=== PATIENT | female | born 1975 | race Hispanic/Latino ===

== ENCOUNTER 2022-03-28 13:23 | Emergency (ER) | payer OTHER ==
--- OUTSIDE RECORDS SUMMARY | 2022-03-28 13:28 | XMS REPORT | Continuity of Care Document ---
:[address] [facility] t Address [address] [place] [address] Dr. Harris. [address] [place] [address] Care Team Providers Name Role Phone REESE Attending Clinician Unavailable Koudela_A Attending Clinician Unavailable AMBREEN_PAUL Attending Clinician Unavailable REESE Admitting Clinician Unavailable Koudela_A Admitting Clinician Unavailable AMBREEN_FARLEONARDOA Admitting Clinician Unavailable Payers Payer Name Policy Type Policy Number Effective Date Expiration Date S ource UMR [id number] 2019 00:00:00 UMR (PPO) [id number] 2019 00:00:00 [place] [id number] 2014 2019 00:00:00 [place] ([place] 00:00:00 Problems Condition Condition Condition Status Onset Resolution Last Treating Co mments Source Name Details Category Date Date Treatment Clinician Date Genital Genital Problem Active 2018-08 [place] warts Warts 1[facility]14 [facility] Chronic Chronic Problem Active 2018-08 [place] back pain Back Pain 1-14 [facility] Allergies, Adverse Reactions, Alerts This patient has no known allergies or adverse reactions. Social History Smoking Status Start Date Stop Date Source Heavy Tobacco Smoker [facility] Medications This patient has no known medications. Vital Signs Vital Name Observation Time Observation Value Comments Source BP Diastolic 2021-12-02 00:00:00 73 mm[Hg] [facility] Height 2021-12-02 00:00:00 61 [in_i] [facility] BMI (Body Mass 2021-12-02 00:00:00 35.1 kg/m2 [place] 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 BP Systolic 2021-12-02 00:00:00 128 mm[Hg] [facility] Body Weight 2021-12-02 00:00:00 186 [lb_av] [facility] BP Diastolic 2021-09-30 00:00:00 94 mm[Hg] [facility] Height 2021-09-30 00:00:00 61 [in_i] [facility] BMI (Body Mass 2021-09-30 00:00:00 35.1 kg/m2 [place] [employer]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 [facility] BP Systolic 2021-09-30 00:00:00 140 mm[Hg] [facility] Body Weight 2021-09-30 00:00:00 186 [lb_av] [facility] BP Diastolic 2021-03-28 00:00:00 74 mm[Hg] [facility] Height 2021-03-28 00:00:00 61 [in_i] [facility] BMI (Body Mass 2021-03-28 00:00:00 35.1 kg/m2 [place] [facility]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 [facility] Index) [facility] BP Systolic 2021-03-28 00:00:00 130 mm[Hg] [facility] Body Weight 2021-03-28 00:00:00 2969 [oz_av] [facility] BP Diastolic 2020-09-01 00:00:00 80 mm[Hg] [facility] Height 2020-09-01 00:00:00 61 [in_i] [place] BMI (Body Mass 2020-09-01 00:00:00 34.8 kg/m2 [place] [facility]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 [facility] BP Systolic 2020-09-01 00:00:00 130 mm[Hg] [place] [facility] Body Weight 2020-09-01 00:00:00 184 [lb_av] [facility] BP Diastolic 2020-08-09 00:00:00 80 mm[Hg] [facility] Height 2020-08-09 00:00:00 61 [in_i] [place] [facility] BMI (Body Mass 2020-08-09 00:00:00 35 kg/m2 [place] [facility]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 [facility] BP Systolic 2020-08-09 00:00:00 145 mm[Hg] [place] [facility] Body Weight 2020-08-09 00:00:00 185 [lb_av] [facility] BP Diastolic 2019-07-29 00:00:00 79 mm[Hg] [place] [facility] Height 2019-07-29 00:00:00 61 [in_i] [place] [facility] BMI (Body Mass 2019-07-29 00:00:00 36.1 kg/m2 [place] [facility]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 [facility] BP Systolic 2019-07-29 00:00:00 122 mm[Hg] [place] [facility] Body Weight 2019-07-29 00:00:00 191 [lb_av] [place] [facility] Height 2019-07-10 00:00:00 61 [in_i] [place] [facility] BMI (Body Mass 2019-07-10 00:00:00 37.2 kg/m2 [place] [facility]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 [facility] Body Weight 2019-07-10 00:00:00 197 [lb_av] [place] [facility] Procedures Procedure Date / Time Performed Performing Clinician [facility] clement MAMMO, screening, 2021-09-30 00:00:00 [facility] MAMMO, screening, 2020-08-09 00:00:00 [facility] MAMMO, screening, 2019-07-10 00:00:00 [facility] Tubal Ligation 2003-08-04 00:00:00 [facility] Plan of Care Planned Activity Planned Date Details Comments Source Diagnostic Test 2021-03-28 SARS CoV 2 RNA [facility] Pending 00:00:00 (COVID-19), QL, Group coroner/medical examiner-PCR, respiratory specimen [code = SARS CoV 2 RNA (COVID-19), QL, coroner/medical examiner-PCR, respiratory specimen] Encounters Start End Encounter Admission Attending Care Care Encounter Source Date/Time Date/Time Type Type Clinicians Facility Department ID 2021-12-05 2021-12-05 Outpatient [place]ONY [place] [id number] [place] 10:49:00 10:49:00 [facility] 2021-12-02 2021-12-02 Outpatient M[place]ONY [place] [id number] [place] 04:10:00 04:10:00 [facility] 0408 [facility] 2021-12-02 2021-12-02 Jolly BYERS [place] - [id number] M [facility] 00:00:00 00:00:00 Tari Hess, [facility] FIELD IRONWORKER: [address] [place] F N, MONITORING TECH [place] [address] Therese am , Ph. 2021-09-30 2021-09-30 Outpatient MELONY [place] [id number] [place] 04:03:00 04:03:00 [facility] 0204 [facility] 2021-09-30 2021-09-30 Outpatient LISTER_MELI [facility] [id number] [place] 04:03:00 04:03:00 [facility] 0407 [facility] 2021-09-30 2021-09-30 Jolly HIHOP [place] - [id number] M jael[place] 00:00:00 00:00:00 Tari Mandel da Starla, [facility] FIELD IRONWORKER: [address], MONITORING TECH [facility] [place] [address] Therese butcher , Ph. 2021-08-23 2021-08-23 Outpatient LISTER_MELI [facility] 732 [place] 02:02:00 02:02:00 SSA 1228 [facility] 2021-08-23 2021-08-23 Outpatient LISTER_MELI [facility] 732 [place] 02:02:00 02:02:00 SSA 0203 [facility] 2021-08-03 2021-08-03 Outpatient LISTER_MELI [facility] 732 [place] 10:02:00 10:02:00 SSA 1208 [facility] 2021-08-02 2021-08-02 Outpatient LISTER_MELI [facility] 732 [place] 11:43:00 11:43:00 S[facility] 1207 [facility] 2021-07-14 2021-07-14 Outpatient LISTER_MELI [facility] 732 [place] 10:57:00 10:57:00 S[facility] 1118 [facility] 2021-07-05 2021-07-05 Outpatient [facility]I [facility] 732 [place] 09:32:00 09:32:00 S[facility] 1109 [facility] 2021-05-06 2021-05-06 Outpatient Koudela_A [facility] [id number] [place] 12:50:00 12:50:00 0910 [facility] 2021-05-06 2021-05-06 Outpatient [facility] [id number] [place] 12:50:00 12:50:00 0928 [facility] 2021-03-28 2021-03-28 Outpatient Koudela_A [facility] [id number] [place] 12:46:00 12:46:00 0802 [facility] 2021-03-28 2021-03-28 [facility] [place] - [id number] M at[place]or 00:00:00 00:00:00 [facility] gillian Castorena PA-C: [facility] [place] [facility] [address] , Ph. 2020-09-24 2020-09-24 Outpatient STARLA_MEMEI [facility]OP [facility] 732 [place] 02:35:00 02:35:00 SSA 1102 [facility] 2020-09-02 2020-09-02 Outpatient LISTER_MEMEI [facility] 732 [place] 05:27:00 05:27:00 SSA 0107 [facility] 2020-09-01 2020-09-01 Outpatient STARLA_MEMEI [facility] 732 [place] 03:21:00 03:21:00 SSA 0106 [facility] 2020-09-01 2020-09-01 Jolly ZEESHAN [place] - [id number] [place] 00:00:00 00:00:00 Tari Hess, [facility] FIELD IRONWORKER: [address], MONITORING TECH [place] [address] [facility] , Ph. 2020-08-31 2020-08-31 Outpatient STARLA_MEMEI [facility]OP [facility] 732 [id number] [place] 09:42:00 09:42:00 SSA 0105 [facility] 2020-08-17 2020-08-17 Outpatient LISTER_MELI ME[facility]OP [facility] 732 75 [place] 03:39:00 03:39:00 SSA 1222 [facility] 2020-08-09 2020-08-09 Outpatient LISTER_MELI MEHOP [facility]OP 732 75 [place] 06:03:00 06:03:00 SSA 1214 [facility] 2020-08-09 2020-08-09 Jolly BYERS [place] - [id number] [place] 00:00:00 00:00:00 Tari Hess, [facility] FIELD IRONWORKER: 111 HOP - MEHOP dede Perez N, MONITORING TECH [place] [address] [facility] , Ph. 2020-08-02 2020-08-02 Outpatient AMBREEN_FAR [facility] 732 75 [place] 03:04:00 03:04:00 HANA 1207 [facility] 2020-08-02 2020-08-02 Outpatient AMBREEN_FAR [facility] 732 [place] 03:04:00 03:04:00 HANA 1210 [facility] 2020-04-13 2020-04-13 Outpatient AMBREEN_FAR [facility] 732 75 [place] 10:26:00 10:26:00 HANA 1009 [facility] 2020-04-12 2020-04-12 Outpatient AMBREEN_FAR [facility] 732 75 [place] 09:06:00 09:06:00 HANA 0817 [facility] 2020-04-05 2020-04-05 Outpatient AMBREEN_FAR [facility] 732 75 [place] 10:11:00 10:11:00 HANA 0810 [facility] 2019-07-29 2019-07-29 Jolly BYERS [place] - [id number] [place] 00:00:00 00:00:00 Tari Hess, [facility] FIELD IRONWORKER: [address], MONIT[place]ING [place] [facility] [place] [address] Progr am , Ph. 2019-07-10 2019-07-10 Jolly BYERS [place] - [id number] M [place] 00:00:00 00:00:00 Tari Hess, [facility] FIELD IRONWORKER: [address] [facility] [address], [facility] [place] [address] Progr am , Ph. Results Test Description Test Time Test Comments Results Result Comments Source cardiovascular assessment panel, serum 2020-08-10 00:00:00 Test Item Value Reference Range Interpretation Comme nts interpretation (test code = interpretation) note pdf (test code = pdf) . 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 in Unspecified specimen by Other stain (test code = 94220-2) note: (test code = note:) comment Cytology report of Cervical or comment vaginal smear or scraping Cyto stain.thin prep (test code = 36677-2) Human papilloma virus negative negative 16+18+31+33+35+39+45+51+52+56+58+59+ 66+68 DNA [Presence] in Cervix by Probe with signal amplification (test code = 68282-5) Chlamydia trachomatis rRNA negative negative [Presence] in Cervix by AMELIA with probe detection (test code = 20831-0) Neisseria gonorrhoeae rRNA negative negative [Presence] in Cervix by AMELIA with probe detection (test code = 43390-6) Trichomonas vaginalis rRNA negative negative [Presence] in Unspecified specimen by AMELIA with probe detection (test code = 05985-5) [facility] - Serum or [id number] 00:00:00 Test Item Value Reference Range Interpretation Comments Thyrotropin [Units/volume] in 1.760 uIU/mL 0.450-4.500 Serum or Plasma by Detection limit <= 0.005 mIU/L (test code = 91383-5) Thyroxine (T4) free 0.80 NG/dL 0.82-1.77 L [Mass/volume] in Serum or Plasma (test code = 3024-7) [facility] Differential panel - Blood 2020-08-10 00:00:00 Test Item Value Reference Range Interpretation Comments Leukocytes [#/volume] in Blood 13.2 x10e3/uL 3.4-10.8 H by Automated count (test code = 6690-2) Erythrocytes [#/volume] in 4.79 x10e6/uL 3.77-5.28 Blood by Automated count (test code = 789-8) Hemoglobin [Mass/volume] in 15.3 g/dL 11.1-15.9 Blood (test code = 718-7) Hematocrit [Volume Fraction] of 46.4 % 34.0-46.6 Blood by Automated count (test code = 4544-3) MCV [Entitic volume] by 97 fL 79-97 Automated count (test code = 787-2) MCH [Entitic mass] by Automated 31.9 pg 26.6-33.0 count (test code = 785-6) MCHC [Mass/volume] by Automated 33.0 g/dL 31.5-35.7 count (test code = 786-4) Erythrocyte distribution width 12.5 % 11.7-15.4 [Ratio] by Automated count (test code = 788-0) Platelets [#/volume] in Blood 252 x10e3/uL 150-450 by Automated count (test code = 777-3) Neutrophils/100 leukocytes in 64 % not estab. Blood by Automated count (test code = 770-8) Lymphocytes/100 leukocytes in 27 % not estab. Blood by Automated count (test code = 736-9) Monocytes/100 leukocytes in 3 % not estab. Blood by Automated count (test code = 5905-5) Eosinophils/100 leukocytes in 4 % not estab. Blood by Automated count (test code = 713-8) Basophils/100 leukocytes in 1 % not estab. Blood by Automated count (test code = 706-2) immature cells (test code = medicare contact specialist immature cells) Neutrophils [#/volume] in Blood 8.6 x10e3/uL 1.4-7.0 H by Automated count (test code = 751-8) Lymphocytes [#/volume] in Blood 3.5 x10e3/uL 0.7-3.1 H by Automated count (test code = 731-0) Monocytes [#/volume] in Blood 0.4 x10e3/uL 0.1-0.9 by Automated count (test code = 742-7) Eosinophils [#/volume] in Blood 0.5 x10e3/uL 0.0-0.4 H by Automated count (test code = 711-2) Basophils [#/volume] in Blood 0.1 x10e3/uL 0.0-0.2 by Automated count (test code = 704-7) Immature granulocytes/100 1 % not estab. leukocytes in Blood by Automated count (test code = 27018-9) Immature granulocytes 0.1 x10e3/uL 0.0-0.1 [#/volume] in Blood by Automated count (test code = 68990-2) Nucleated erythrocytes/100 medicare contact specialist leukocytes [Ratio] in Blood by Automated count (test code = 22782-8) Morphology [Interpretation] in medicare contact specialist Blood Narrative (test code = 37869-1) [facility] ProgramComprehensive metabolic 2000 panel - Serum or [id number] 00:00:00 Test Item Value Reference Range Interpretation Comments Glucose [Mass/volume] in 92 mg/dL 65-99 Serum or Plasma (test code = 2345-7) Urea nitrogen [Mass/volume] 8 mg/dL 6-24 in Serum or Plasma (test code = 3094-0) Creatinine [Mass/volume] in 0.65 mg/dL 0.57-1.00 Serum or Plasma (test code = 2160-0) Glomerular filtration 107 mL/min/1.73 >59 rate/1.73 sq M.predicted among non-blacks [Volume Rate/Area] in Serum, Plasma or Blood by Creatinine-based formula (CKD-EPI) (test code = 52714-5) Glomerular filtration 123 mL/min/1.73 >59 rate/1.73 sq M.predicted among blacks [Volume Rate/Area] in Serum, Plasma or Blood by Creatinine-based formula (CKD-EPI) (test code = 56275-8) Urea nitrogen/Creatinine 12 9-23 [Mass Ratio] in Serum or Plasma (test code = 3097-3) Sodium [Moles/volume] in 136 mmol/L 134-144 Serum or Plasma (test code = 2951-2) Potassium [Moles/volume] in 4.5 mmol/L 3.5-5.2 Serum or Plasma (test code = 2823-3) Chloride [Moles/volume] in 100 mmol/L 96-106 Serum or Plasma (test code = 2075-0) Carbon dioxide, total 28 mmol/L 20-29 [Moles/volume] in Serum or Plasma (test code = 2027-) Calcium [Mass/volume] in 9.2 mg/dL 8.7-10.2 Serum or Plasma (test code = 53744-0) Protein [Mass/volume] in 6.7 g/dL 6.0-8.5 Serum or Plasma (test code = 2885-2) Albumin [Mass/volume] in 4.0 g/dL 3.8-4.8 Serum or Plasma (test code = 1751-7) Globulin [Mass/volume] in 2.7 g/dL 1.5-4.5 Serum by calculation (test code = 37301-9) Albumin/Globulin [Mass Ratio] 1.5 1.2-2.2 in Serum or Plasma (test code = 1759-0) Bilirubin.total [Mass/volume] 0.4 mg/dL 0.0-1.2 in Serum or Plasma (test code = 1974-) Alkaline phosphatase 117 IU/L 39-117 [Enzymatic activity/volume] in Serum or Plasma (test code = 6768-6) Aspartate aminotransferase 19 IU/L 0-40 [Enzymatic activity/volume] in Serum or Plasma (test code = 0-8) Alanine aminotransferase 19 IU/L 0-32 [Enzymatic activity/volume] in Serum or Plasma (test code = 1742-6) [facility] panel - Serum or Plasma 2020-08-10 00:00:00 Test Item Value Reference Range Interpretation Comments Cholesterol [Mass/volume] in Serum 210 mg/dL 100-199 H or Plasma (test code = 2093-3) Triglyceride [Mass/volume] in Serum 267 mg/dL 0-149 H or Plasma (test code = 2571-8) Cholesterol in HDL [Mass/volume] in 39 mg/dL >39 L Serum or Plasma (test code = 2085-9) Cholesterol in VLDL [Mass/volume] 47 mg/dL 5-40 H in Serum or Plasma by calculation (test code = 00681-4) Cholesterol in LDL [Mass/volume] in 124 mg/dL 0-99 H Serum or Plasma by calculation (test code = 90461-1) Laboratory comment [Text] in Report medicare contact specialist Narrative (test code = 85218-9) [facility] [Presence] in Serum by RPR 2020-08-10 00:00:00 Test Item Value Reference Range Interpretation Comments Reagin Ab [Presence] in Serum by non reactive non reactive RPR (test code = 23120-6) [facility]+2 Ab+HIV1 p24 Ag [Presence] in Serum or Plasma by [id number] 00:00:00 Test Item Value Reference Range Interpretation Comments HIV 1+2 Ab+HIV1 p24 Ag non reactive non reactive [Presence] in Serum or Plasma by Immunoassay (test code = 41871-2) [facility]atitis B virus surface Ag [Presence] in Serum or Plasma by [id number] 00:00:00 Test Item Value Reference Range Interpretation Comments Hepatitis B virus surface Ag negative negative [Presence] in Serum or Plasma by Immunoassay (test code = 5196-1) [facility] and TSH panel - Serum or [id number] 00:00:00 Test Item Value Reference Range Interpretation Comments Thyrotropin [Units/volume] in 1.400 uIU/mL 0.450-4.500 Serum or Plasma by Detection limit <= 0.005 mIU/L (test code = 38686-6) Thyroxine (T4) free 0.94 NG/dL 0.82-1.77 [Mass/volume] in Serum or Plasma (test code = 3024-7) [facility] W Auto Differential panel - Blood 2019-07-11 00:00:00 Test Item Value Reference Range Interpretation Comments Leukocytes [#/volume] in Blood 12.2 x10e3/uL 3.4-10.8 H by Automated count (test code = 6690-2) Erythrocytes [#/volume] in 4.33 x10e6/uL 3.77-5.28 Blood by Automated count (test code = 789-8) Hemoglobin [Mass/volume] in 14.2 g/dL 11.1-15.9 Blood (test code = 718-7) Hematocrit [Volume Fraction] of 42.7 % 34.0-46.6 Blood by Automated count (test code = 4544-3) Erythrocyte mean corpuscular 99 fL 79-97 H volume [Entitic volume] by Automated count (test code = 787-2) Erythrocyte mean corpuscular 32.8 pg 26.6-33.0 hemoglobin [Entitic mass] by Automated count (test code = 785-6) Erythrocyte mean corpuscular 33.3 g/dL 31.5-35.7 hemoglobin concentration [Mass/volume] by Automated count (test code = 786-4) Erythrocyte distribution width 13.5 % 12.3-15.4 [Ratio] by Automated count (test code = 788-0) Platelets [#/volume] in Blood 278 x10e3/uL 150-450 by Automated count (test code = 777-3) Neutrophils/100 leukocytes in 57 % not estab. Blood by Automated count (test code = 770-8) Lymphocytes/100 leukocytes in 30 % not estab. Blood by Automated count (test code = 736-9) Monocytes/100 leukocytes in 7 % not estab. Blood by Automated count (test code = 5905-5) Eosinophils/100 leukocytes in 4 % not estab. Blood by Automated count (test code = 713-8) Basophils/100 leukocytes in 1 % not estab. Blood by Automated count (test code = 706-2) immature cells (test code = medicare contact specialist immature cells) Neutrophils [#/volume] in Blood 7.1 x10e3/uL 1.4-7.0 H by Automated count (test code = 751-8) Lymphocytes [#/volume] in Blood 3.6 x10e3/uL 0.7-3.1 H by Automated count (test code = 731-0) Monocytes [#/volume] in Blood 0.9 x10e3/uL 0.1-0.9 by Automated count (test code = 742-7) Eosinophils [#/volume] in Blood 0.5 x10e3/uL 0.0-0.4 H by Automated count (test code = 711-2) Basophils [#/volume] in Blood 0.1 x10e3/uL 0.0-0.2 by Automated count (test code = 704-7) immature granulocytes (test 1 % not estab. code = immature granulocytes) Granulocytes Immature 0.1 x10e3/uL 0.0-0.1 [#/volume] in Blood by Automated count (test code = 75559-5) Nucleated erythrocytes/100 medicare contact specialist leukocytes [Ratio] in Blood by Automated count (test code = 59240-9) Morphology [interpretation] in medicare contact specialist Blood Narrative (test code = 41057-6) [facility] 2000 panel - Serum or [id number] 00:00:00 Test Item Value Reference Range Interpretation Comments Glucose [Mass/volume] in 93 mg/dL 65-99 Serum or Plasma (test code = 2345-7) Urea nitrogen [Mass/volume] 9 mg/dL 6-24 in Serum or Plasma (test code = 3094-0) Creatinine [Mass/volume] in 0.69 mg/dL 0.57-1.00 Serum or Plasma (test code = 2160-0) eGFR if nonafricn AM (test 106 mL/min/1.73 >59 code = eGFR if nonafricn AM) eGFR if africn AM (test code 122 mL/min/1.73 >59 = eGFR if africn AM) Urea nitrogen/Creatinine 13 9-23 [Mass Ratio] in Serum or Plasma (test code = 3097-3) Sodium [Moles/volume] in 140 mmol/L 134-144 Serum or Plasma (test code = 2951-2) Potassium [Moles/volume] in 4.4 mmol/L 3.5-5.2 Serum or Plasma (test code = 2823-3) Chloride [Moles/volume] in 100 mmol/L 96-106 Serum or Plasma (test code = 2074-0) Carbon dioxide, total 26 mmol/L 20-29 [Moles/volume] in Serum or Plasma (test code = 2027-9) Calcium [Mass/volume] in 9.3 mg/dL 8.7-10.2 Serum or Plasma (test code = 84118-5) Protein [Mass/volume] in 6.8 g/dL 6.0-8.5 Serum or Plasma (test code = 2885-2) Albumin [Mass/volume] in 3.9 g/dL 3.5-5.5 Serum or Plasma (test code = 1751-7) Globulin [Mass/volume] in 2.9 g/dL 1.5-4.5 Serum by calculation (test code = 62885-4) Albumin/Globulin [Mass Ratio] 1.3 1.2-2.2 in Serum or Plasma (test code = 1759-0) Bilirubin.total [Mass/volume] 0.2 mg/dL 0.0-1.2 in Serum or Plasma (test code = 1974-2) Alkaline phosphatase 84 IU/L 39-117 [Enzymatic activity/volume] in Serum or Plasma (test code = 6768-6) Aspartate aminotransferase 23 IU/L 0-40 [Enzymatic activity/volume] in Serum or Plasma (test code = 1920-8) Alanine aminotransferase 24 IU/L 0-32 [Enzymatic activity/volume] in Serum or Plasma (test code = 1742-6) [facility] - Serum or Plasma 2019-07-11 00:00:00 Test Item Value Reference Range Interpretation Comments Cholesterol [Mass/volume] in Serum 179 mg/dL 100-199 or Plasma (test code = 3-3) Triglyceride [Mass/volume] in Serum 182 mg/dL 0-149 H or Plasma (test code = 2571-8) Cholesterol in HDL [Mass/volume] in 40 mg/dL >39 Serum or Plasma (test code = 2084-9) Cholesterol in VLDL [Mass/volume] 36 mg/dL 5-40 in Serum or Plasma by calculation (test code = 17840-9) Cholesterol in LDL [Mass/volume] in 103 mg/dL 0-99 H Serum or Plasma by calculation (test code = 20997-8) comment: (test code = comment:) medicare contact specialist Cholesterol in LDL/Cholesterol in 2.6 ratio 0.0-3.2 HDL [Mass Ratio] in Serum or Plasma (test code = 20831-6) [facility] [Presence] in Serum by RPR 2019-07-11 00:00:00 Test Item Value Reference Range Interpretation Comments Reagin Ab [Presence] in Serum by non reactive non reactive RPR (test code = 65867-6) [facility] [facility] Ab+HIV1 p24 Ag [Presence] in Serum by [id number] 00:00:00 Test Item Value Reference Range Interpretation Comments HIV 1+2 Ab+HIV1 p24 Ag non reactive non reactive [Presence] in Serum by Immunoassay (test code = 06918-7) [facility]landHepatitis B virus surface Ag [Presence] in Serum or Plasma by [id number] 00:00:00 Test Item Value Reference Range Interpretation Comments Hepatitis B virus surface Ag negative negative [Presence] in Serum or Plasma by Immunoassay (test code = 5196-1) [facility], [id number] 00:00:00 Test Item Value Reference Range Interpretation Comments interpretation (test code = note interpretation) pdf image (test code = pdf image) . 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 in Unspecified specimen by Other stain (test code = 14429-1) note: (test code = note:) comment Cytology report of Cervical or comment vaginal smear or scraping Cyto stain.thin prep (test code = 99941-7) Human papilloma virus negative negative 16+18+31+33+35+39+45+51+52+56+58+59+ 66+68 DNA [Presence] in Cervix by Probe and signal amplification method (test code = 99158-6) Chlamydia trachomatis rRNA negative negative [Presence] in Cervix by Probe and target amplification method (test code = 26482-3) Neisseria gonorrhoeae rRNA negative negative [Presence] in Cervix by Probe and target amplification method (test code = 10347-1) Trichomonas vaginalis rRNA negative negative [Presence] in Unspecified specimen by Probe and target amplification method (test code = 58471-7) [facility] TSH [facility] - Serum or [id number] 00:00:00 Test Item Value Reference Range Interpretation Comments Thyrotropin [Units/volume] in 1.400 uIU/mL 0.450-4.500 Serum or Plasma by Detection limit <= 0.005 mIU/L (test code = 42788-3) Thyroxine (T4) free 0.94 NG/dL 0.82-1.77 [Mass/volume] in Serum or Plasma (test code = 3024-7) [facility] Auto Differential panel - Blood 2019-07-11 00:00:00 Test Item Value Reference Range Interpretation Comments Leukocytes [#/volume] in Blood 12.2 x10e3/uL 3.4-10.8 H by Automated count (test code = 6690-2) Erythrocytes [#/volume] in 4.33 x10e6/uL 3.77-5.28 Blood by Automated count (test code = 789-8) Hemoglobin [Mass/volume] in 14.2 g/dL 11.1-15.9 Blood (test code = 718-7) Hematocrit [Volume Fraction] of 42.7 % 34.0-46.6 Blood by Automated count (test code = 4544-3) Erythrocyte mean corpuscular 99 fL 79-97 H volume [Entitic volume] by Automated count (test code = 787-2) Erythrocyte mean corpuscular 32.8 pg 26.6-33.0 hemoglobin [Entitic mass] by Automated count (test code = 785-6) Erythrocyte mean corpuscular 33.3 g/dL 31.5-35.7 hemoglobin concentration [Mass/volume] by Automated count (test code = 786-4) Erythrocyte distribution width 13.5 % 12.3-15.4 [Ratio] by Automated count (test code = 788-0) Platelets [#/volume] in Blood 278 x10e3/uL 150-450 by Automated count (test code = 777-3) Neutrophils/100 leukocytes in 57 % not estab. Blood by Automated count (test code = 770-8) Lymphocytes/100 leukocytes in 30 % not estab. Blood by Automated count (test code = 736-9) Monocytes/100 leukocytes in 7 % not estab. Blood by Automated count (test code = 5905-5) Eosinophils/100 leukocytes in 4 % not estab. Blood by Automated count (test code = 713-8) Basophils/100 leukocytes in 1 % not estab. Blood by Automated count (test code = 706-2) immature cells (test code = medicare contact specialist immature cells) Neutrophils [#/volume] in Blood 7.1 x10e3/uL 1.4-7.0 H by Automated count (test code = 751-8) Lymphocytes [#/volume] in Blood 3.6 x10e3/uL 0.7-3.1 H by Automated count (test code = 731-0) Monocytes [#/volume] in Blood 0.9 x10e3/uL 0.1-0.9 by Automated count (test code = 742-7) Eosinophils [#/volume] in Blood 0.5 x10e3/uL 0.0-0.4 H by Automated count (test code = 711-2) Basophils [#/volume] in Blood 0.1 x10e3/uL 0.0-0.2 by Automated count (test code = 704-7) immature granulocytes (test 1 % not estab. code = immature granulocytes) Granulocytes Immature 0.1 x10e3/uL 0.0-0.1 [#/volume] in Blood by Automated count (test code = 06452-9) Nucleated erythrocytes/100 medicare contact specialist leukocytes [Ratio] in Blood by Automated count (test code = 24045-3) Morphology [interpretation] in medicare contact specialist Blood Narrative (test code = 65949-5) [facility] 2000 panel - Serum or [id number] 00:00:00 Test Item Value Reference Range Interpretation Comments Glucose [Mass/volume] in 93 mg/dL 65-99 Serum or Plasma (test code = 2345-7) Urea nitrogen [Mass/volume] 9 mg/dL 6-24 in Serum or Plasma (test code = 3094-0) Creatinine [Mass/volume] in 0.69 mg/dL 0.57-1.00 Serum or Plasma (test code = 2160-0) eGFR if nonafricn AM (test 106 mL/min/1.73 >59 code = eGFR if nonafricn AM) eGFR if africn AM (test code 122 mL/min/1.73 >59 = eGFR if africn AM) Urea nitrogen/Creatinine 13 9-23 [Mass Ratio] in Serum or Plasma (test code = 3097-3) Sodium [Moles/volume] in 140 mmol/L 134-144 Serum or Plasma (test code = 2951-2) Potassium [Moles/volume] in 4.4 mmol/L 3.5-5.2 Serum or Plasma (test code = 2823-3) Chloride [Moles/volume] in 100 mmol/L 96-106 Serum or Plasma (test code = 2075-0) Carbon dioxide, total 26 mmol/L 20-29 [Moles/volume] in Serum or Plasma (test code = 2027-9) Calcium [Mass/volume] in 9.3 mg/dL 8.7-10.2 Serum or Plasma (test code = 81223-9) Protein [Mass/volume] in 6.8 g/dL 6.0-8.5 Serum or Plasma (test code = 2885-2) Albumin [Mass/volume] in 3.9 g/dL 3.5-5.5 Serum or Plasma (test code = 1751-7) Globulin [Mass/volume] in 2.9 g/dL 1.5-4.5 Serum by calculation (test code = 54875-0) Albumin/Globulin [Mass Ratio] 1.3 1.2-2.2 in Serum or Plasma (test code = 1759-0) Bilirubin.total [Mass/volume] 0.2 mg/dL 0.0-1.2 in Serum or Plasma (test code = 1975-2) Alkaline phosphatase 84 IU/L 39-117 [Enzymatic activity/volume] in Serum or Plasma (test code = 6768-6) Aspartate aminotransferase 23 IU/L 0-40 [Enzymatic activity/volume] in Serum or Plasma (test code = 1920-8) Alanine aminotransferase 24 IU/L 0-32 [Enzymatic activity/volume] in Serum or Plasma (test code = 1742-6) [facility] 1996 panel - Serum or Plasma 2019-07-11 00:00:00 Test Item Value Reference Range Interpretation Comments Cholesterol [Mass/volume] in Serum 179 mg/dL 100-199 or Plasma (test code = 2093-3) Triglyceride [Mass/volume] in Serum 182 mg/dL 0-149 H or Plasma (test code = 2571-8) Cholesterol in HDL [Mass/volume] in 40 mg/dL >39 Serum or Plasma (test code = 2085-9) Cholesterol in VLDL [Mass/volume] 36 mg/dL 5-40 in Serum or Plasma by calculation (test code = 31191-9) Cholesterol in LDL [Mass/volume] in 103 mg/dL 0-99 H Serum or Plasma by calculation (test code = 45635-8) comment: (test code = comment:) medicare contact specialist Cholesterol in LDL/Cholesterol in 2.6 ratio 0.0-3.2 HDL [Mass Ratio] in Serum or Plasma (test code = 30196-1) [facility]land[facility]agin Ab [Presence] in Serum by RPR 2019-07-11 00:00:00 Test Item Value Reference Range Interpretation Comments Reagin Ab [Presence] in Serum by non reactive non reactive RPR (test code = 65711-1) [facility] 1+2 Ab+HIV1 p24 Ag [Presence] in Serum by [id number] 00:00:00 Test Item Value Reference Range Interpretation Comments HIV 1+2 Ab+HIV1 p24 Ag non reactive non reactive [Presence] in Serum by Immunoassay (test code = 27170-6) [facility]atitis B virus surface Ag [Presence] in Serum or Plasma by [id number] 00:00:00 Test Item Value Reference Range Interpretation Comments Hepatitis B virus surface Ag negative negative [Presence] in Serum or Plasma by Immunoassay (test code = 5196-1) [facility], [id number] 00:00:00 Test Item Value Reference Range Interpretation Comments interpretation (test code = note interpretation) pdf image (test code = pdf image) . 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 in Unspecified specimen by Other stain (test code = 66500-9) note: (test code = note:) comment Cytology report of Cervical or comment vaginal smear or scraping Cyto stain.thin prep (test code = 31471-3) Human papilloma virus negative negative 16+18+31+33+35+39+45+51+52+56+58+59+ 66+68 DNA [Presence] in Cervix by Probe and signal amplification method (test code = 65607-7) Chlamydia trachomatis rRNA negative negative [Presence] in Cervix by Probe and target amplification method (test code = 28809-6) Neisseria gonorrhoeae rRNA negative negative [Presence] in Cervix by Probe and target amplification method (test code = 98536-1) Trichomonas vaginalis rRNA negative negative [Presence] in Unspecified specimen by Probe and target amplification method (test code = 23832-0) [facility]
[2022-03-28 13:59] LABS: Absolute Lymphocytes (CBC) 2.4 K/uL (0.7-4.9); Hematocrit 37.7 % (36.0-45.0); Lymphocytes % 15.4 % (15.3-44.8); MCV 92.5 fL (80-100); MPV 8.3 fL (7.6-11.3); RBC Red Blood Cell Count 4.08 M/uL (3.86-4.86)
[2022-03-28 14:14] LABS: Albumin 2.6 g/dL (3.4-5.0); Bilirubin Total 0.4 mg/dL (0.2-1.0); Potassium 3.9 mmol/L (3.5-5.1)
[2022-03-28 14:31] LABS: Urine Blood Trace-intact (Negative); Urine Glucose Trace (Negative); Urine Protein 2+ (Negative); Urine Specific Gravity >=1.030 (1.005-1.030); Urine pH 5.5 (5.0-7.0)
--- NOTE | 2022-03-28 15:50 | RAD REPORT ---
EXAM DESCRIPTION: CTAbdomen Pelvis W Contrast - 03/28/2022 3:36 pm CLINICAL HISTORY: Abdominal pain. Abdominal pain, acute, nonlocalized COMPARISON: No comparisons TECHNIQUE: Biphasic CT imaging of the abdomen and pelvis was performed with 100 ml non-ionic IV cont rast. All CT scans are performed using dose optimization technique as appropriate and may include automated exposure control or mA/KV adjustment according to patient size. FINDINGS: The lung bases are clear.Cholelithiasis. The liver, spleen, pancreas, adrenal glands and kidneys are within normal limits. There is inflammation in the lower abdomen surrounding a segment of small intestine. There is curvili near area of increased density within the lumen of the involved small intestine. Fluid filled large a nd small bowel is noted without britton obstruction. The appendix is normal. No evidence of significan t lymphadenopathy. No suspicious bony findings. IMPRESSION: Focal inflammatory changes involving a small portion of the small intestine in the lower abdomen. Apparent postsurgical suturing is present in the region and elsewhere in the small bowel. F indings could be related to underlying inflammatory bowel disease. Cholelithiasis.
[2022-03-28 20:23] VITALS: BP 107/73; TEMP 97.8; O2SAT 100
--- NOTE | 2022-03-29 10:17 | EDPHYS ---
Physician Documentation [facility] Name: Libby Putnam Age: 46 yrs Sex: Female : 1975 Arrival Date: 03/28/2022 Time: 13:26 Bed 13 Private MD: FREIDA Physician Leroy Monet HPI: 03/28 15:30 This 46 yrs old Female presents to ER via Ambulatory with complaints of jl9 Abdominal Pain. 15:30 Onset: The symptoms/episode began/occurred 1 month(s) ago. The symptoms do not radiate. jl9 Associated signs and symptoms: Pertinent positives: Pertinent negatives: nausea, vomiting, and diarrhea. The symptoms are described as crampy. Modifying factors: The symptoms are alleviated by nothing, the symptoms are aggravated by nothing. Severity of pain: At its worst the pain was moderate a 4 / 10. The patient has experienced similar episodes in the past, Patient diagnosed with Colitis last week, possibly Crohn's and is on Cipro. . 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 - Social history:: Smoking status: Patient/guardian denies using tobacco, Stopped _ months ago 1 Patient/guardian denies using alcohol. ROS: 15:31 Constitutional: Negative for fever, chills, and weight loss, Eyes: Negative for injury, jl9 pain, redness, and discharge, ENT: Negative for injury, pain, and discharge, Neck: Negative for injury, pain, and swelling, Cardiovascular: Negative for chest pain, palpitations, and edema, Respiratory: Negative for shortness of breath, cough, wheezing, and pleuritic chest pain. 15:31 Back: Negative for injury and pain, : Negative for injury, bleeding, discharge, and swelling, MS/Extremity: Negative for injury and deformity, Skin: Negative for injury, rash, and discoloration, Neuro: Negative for headache, weakness, numbness, tingling, and seizure, Psych: Negative for depression, anxiety, suicide ideation, homicidal ideation, and hallucinations, Allergy/Immunology: Negative for hives, rash, and allergies, Endocrine: Negative for neck swelling, polydipsia, polyuria, polyphagia, and marked weight changes, Hematologic/Lymphatic: Negative for swollen nodes, abnormal bleeding, and unusual bruising. 15:31 Abdomen/GI: Positive for abdominal cramps. Exam: 15:32 Constitutional: This is a well developed, well nourished patient who is awake, alert, jl9 and in no acute distress. Head/Face: Normocephalic, atraumatic. Eyes: Pupils equal round and reactive to light, extra-ocular motions intact. Lids and lashes normal. Conjunctiva and sclera are non-icteric and not injected. Cornea within normal limits. Periorbital areas with no swelling, redness, or edema. ENT: Mucous membranes moist. Neck: Trachea midline, no thyromegaly or masses palpated, and no cervical lymphadenopathy. Supple, full range of motion without nuchal rigidity, or vertebral point tenderness. No Meningismus. Chest/axilla: Normal chest wall appearance and motion. Nontender with no deformity. No lesions are appreciated. Cardiovascular: Regular rate and rhythm with a normal S1 and S2. No gallops, murmurs, or rubs. Normal PMI, no JVD. No pulse deficits. Respiratory: Lungs have equal breath sounds bilaterally, clear to auscultation and percussion. No rales, rhonchi or wheezes noted. No increased work of breathing, no retractions or nasal flaring. 15:32 Abdomen/GI: Soft, non-tender, with normal bowel sounds. No distension or tympany. No guarding or rebound. No evidence of tenderness throughout. Back: No spinal tenderness. No costovertebral tenderness. Full range of motion. Skin: Warm, dry with normal turgor. Normal color with no rashes, no lesions, and no evidence of cellulitis. MS/ Extremity: Pulses equal, no cyanosis. Neurovascular intact. Full, normal range of motion. Neuro: Awake and alert, GCS 15, oriented to person, place, time, and situation. Cranial nerves II-XII grossly intact. Motor strength 5/5 in all extremities. Sensory grossly intact. Cerebellar exam normal. Normal gait. Psych: Awake, alert, with orientation to person, place and time. Behavior, mood, and affect are within normal limits. Vital Signs: 13:27 BP 107 / 73; Pulse 111; Resp 18; Temp 97.8; Pulse Ox 100% on R/A; Weight 74.39 kg; 3 Height 5 ft. 1 in. (154.94 cm); Pain 10/10; 16:11 Pulse 99; Resp 16; Pulse Ox 100% on R/A; jd3 13:27 Body Mass Index 30.99 (74.39 kg, 154.94 cm) 3 MDM: 13:36 Patient medically screened. 9 15:32 Data reviewed: vital signs, nurses notes. 9 15:59 Counseling: I had a detailed discussion with the patient and/or guardian regarding: jl9 Discussed findings with patient. Patient denies any pain or distress currently. Patient agrees to continue taking her Cipro as prescribed last week. . 03/28 13:34 Order name: CBC with Diff; Complete Time: 14:35 1 03/28 13:34 Order name: CMP; Complete Time: 14:35 ld1 03/28 13:34 Order name: Lipase; Complete Time: 14:35 1 03/28 14:32 Order name: Urine Dipstick-Ancillary; Complete Time: 14:35 EDCA 03/28 14:37 Order name: CT Abd/Pelvis - IV Contrast Only; Complete Time: 15:55 9 03/28 13:34 Order name: IV Saline Lock; Complete Time: 13:40 1 03/28 13:34 Order name: Labs collected and sent; Complete Time: 13:40 1 03/28 13:38 Order name: Urine Dipstick-Ancillary (obtain specimen); Complete Time: 14:33 9 03/28 13:38 Order name: Urine Test (obtain specimen); Complete Time: 14:33 jl9 Administered Medications: No medications were administered Disposition Summary: 03/28/22 16:01 Discharge Ordered Location: Home jl9 Condition: Stable jl9 Diagnosis - Irritable bowel syndrome without diarrhea jl9 Followup: jl9 - With: Private Physician - When: 1 - 2 days - Reason: Recheck today's complaints, Continuance of care, Re-evaluation by your physician Followup: jl9 - With: Nolan Wills MD - When: 1 - 2 days - Reason: Recheck today's complaints, Continuance of care, Re-evaluation by your physician Discharge Instructions: - Discharge Summary Sheet jl9 - Irritable Bowel Syndrome, Adult jl9 Forms: - Medication Reconciliation Form jl9 - Thank You Letter jl9 - Antibiotic Education jl9 - Prescription Opioid Use jl9 Signatures: Dispatcher [employer] Queta Owens RN RN 1 Jana Tay 3 Reggie Zhao jl9
--- NOTE | 2022-03-29 10:17 | ER ---
Nurse's Notes [facility] Name: Libby Putnam Age: 46 yrs Sex: Female : 1975 Arrival Date: 03/28/2022 Time: 13:26 Bed 13 Private MD: Diagnosis: Irritable bowel syndrome without diarrhea Presentation: 03/28 13:27 Chief complaint: Patient states: abd pain, squeezing, described as "contractions", eh3 since February 27. Coronavirus screen: Vaccine status: Patient reports receiving the 2nd dose of the covid vaccine. Ebola Screen: No symptoms or risks identified at this time. Initial Sepsis Screen: Does the patient meet any 2 criteria? No. Patient's initial sepsis screen is negative. Does the patient have a suspected source of infection? No. Patient's initial sepsis screen is negative. Risk Assessment: Do you want to hurt yourself or someone else? Patient reports no desire to harm self or others. Onset of symptoms was February 27, 2022. 13:27 Method Of Arrival: Ambulatory 3 13:27 Acuity: ART 3 eh3 Triage Assessment: 13:36 General: Appears in no apparent distress. uncomfortable, Behavior is calm, cooperative, eh3 appropriate for age. Pain: Complains of pain in epigastric area and suprapubic area Pain currently is 10 out of 10 on a pain scale. Quality of pain is described as squeezing, throbbing, Pain began 1 month ago Is intermittent. Neuro: Level of Consciousness is awake, alert, obeys commands, Oriented to person, place, time, situation. Cardiovascular: Capillary refill < 3 seconds Patient's skin is warm and dry. Respiratory: Airway is patent Respiratory effort is even, unlabored. GI: Abdomen is round non-distended, Reports lower abdominal pain, upper abdominal pain, bloating, diarrhea, epigastric pain, intolerance of fluids, intolerance of food. 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 - Social history:: Smoking status: Patient/guardian denies using tobacco, Stopped _ months ago 1 Patient/guardian denies using alcohol. Screenin:10 Abuse screen: Denies threats or abuse. Nutritional screening: No deficits noted. jd3 Tuberculosis screening: No symptoms or risk factors identified. Fall Risk Ambulatory Aid- None/Bed Rest/Nurse Assist (0 pts). Gait- Normal/Bed Rest/Wheelchair (0 pts) Mental Status- Oriented to own ability (0 pts). Total Saucedo Fall Scale indicates No Risk (0-24 pts). Assessment: 14:55 Reassessment: Patient appears in no apparent distress at this time. Patient and/or iw family updated on plan of care and expected duration. Pain level reassessed. Patient is alert, oriented x 3, equal unlabored respirations, skin warm/dry/pink. 15:02 General: Appears in no apparent distress. comfortable, Behavior is calm, cooperative, jd3 appropriate for age. Pain: Complains of pain in abdomen. Neuro: Ventura Agitation-Sedation Scale (RASS): 0 - Alert and Calm Level of Consciousness is awake, alert, obeys commands, Oriented to person, place, time, situation. Cardiovascular: Capillary refill < 3 seconds Patient's skin is warm and dry. Respiratory: Airway is patent Respiratory effort is even, unlabored, Respiratory pattern is regular, symmetrical. GI: Abdomen is non-distended, Reports upper abdominal pain. : No signs and/or symptoms were reported regarding the genitourinary system. EENT: No signs and/or symptoms were reported regarding the EENT system. Derm: Skin is intact, Skin is dry, Skin is normal, Skin temperature is warm. Musculoskeletal: Circulation, motion, and sensation intact. Range of motion: intact in all extremities. 16:10 Reassessment: Patient appears in no apparent distress at this time. Patient and/or jd3 family updated on plan of care and expected duration. Pain level reassessed. Patient is alert, oriented x 3, equal unlabored respirations, skin warm/dry/pink. Vital Signs: 13:27 BP 107 / 73; Pulse 111; Resp 18; Temp 97.8; Pulse Ox 100% on R/A; Weight 74.39 kg; eh3 Height 5 ft. 1 in. (154.94 cm); Pain 10/10; 16:11 Pulse 99; Resp 16; Pulse Ox 100% on R/A; jd3 13:27 Body Mass Index 30.99 (74.39 kg, 154.94 cm) 3 ED Course: 13:26 Patient arrived in ED. mr 13:34 Triage completed. 3 13:36 Reggie Zhao is PHCP. jl9 13:36 Leroy Monet MD is Attending Physician. jl9 13:36 Arm band placed on right wrist. eh3 13:40 Inserted saline lock: 20 gauge in right antecubital area, using aseptic technique. 3 Blood collected. 15:01 Dipak Fuentes, RN is Primary Nurse. jd3 15:38 CT Abd/Pelvis - IV Contrast Only In Process Unspecified. EDMS 16:00 Nolan Wills MD is Referral Physician. jl9 16:10 Patient has correct armband on for positive identification. Bed in low position. Call jd3 light in reach. Side rails up X 1. Pulse ox on. NIBP on. 16:11 No provider procedures requiring assistance completed. IV discontinued, intact, jd3 bleeding controlled, No redness/swelling at site. Pressure dressing applied. Administered Medications: No medications were administered Medication: 16:10 VIS not applicable for this client. jd3 Outcome: 16:01 Discharge ordered by . jl9 16:11 Discharged to home ambulatory. jd3 16:11 Condition: stable 16:11 Discharge instructions given to patient, Instructed on discharge instructions, follow up and referral plans. Demonstrated understanding of instructions, follow-up care. 16:11 Patient left the ED. jd3 Signatures: Dispatcher [employer] FREIDANJ Jeannie Alegre Bernice Archuleta, RN Dipak Goldman, MICHAEL RN Jana [place] [facility] Reggie Zhao jl9
== END 2022-03-28 16:11 | disposition home or self-care (01) ==
LOC: ER 13:23
DX: K58.9 Irritable bowel syndrome, unspecified (principal)
CPT/HCPCS: 85025; 36415; 81003; 83690; 80053; 74177; Q9967; 99284